=== PATIENT | female | born 1965 | race Caucasian/White ===

== ENCOUNTER 2021-04-23 15:41 | Emergency (ER) | payer OTHER ==
[2021-04-23 16:05] VITALS: BP 146/79; PULSE 74; RESP 18; TEMP 98.1
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
== END 2021-04-23 16:42 | disposition home or self-care (01) ==
LOC: EC 15:41
DX: M25.511 Pain in right shoulder (principal); M54.5 Low back pain; V89.2XXA Person injured in unspecified motor-vehicle accident, traffic, initial encounter; Y92.410 Unspecified street and highway as the place of occurrence of the external cause
CPT/HCPCS: 99283

== ENCOUNTER → 2022-08-29 | Outpatient (CLI) | payer BC ==
--- NOTE | 2022-08-29 10:40 | XR ---
EXAMINATION TYPE: XR foot limited RT DATE OF EXAM: 08/29/2022 COMPARISON: None HISTORY: Pain medial TECHNIQUE: 2 view right foot FINDINGS: No acute fracture or dislocation is evident. Hammertoes may be present. Joint spaces are pr eserved. Soft tissues are unremarkable. The calcaneus appears intact. Heel pad appears unremarkable. Follow up exams can be performed 7-10 days for continued pain. IMPRESSION: 1. No acute osseous abnormality right foot.
== END | disposition home or self-care (01) ==
LOC: RADXRMAIN 10:05
PROVIDERS: ATTEND Internal Medicine
DX: M79.671 Pain in right foot (principal)